=== PATIENT | female | born 1955 | race Two or more races ===

== ENCOUNTER 2024-06-03 19:43 | Emergency (ER) | payer OTHER ==
[~2024-06-03] VITALS: Ht 157.5 cm; Wt 59.4 kg
[2024-06-03] MEDS ORDERED: FF) Escitalopram Oxalate 5MG TABLET PO ONE (20:00)
[2024-06-03] MEDS ORDERED: TRAZODONE HCL 50 MG TABLET PO ONE (20:00)
[2024-06-03] MEDS ORDERED: LEXAPRO5 MG PO ×2 (20:06→21:45)
[2024-06-03] MEDS ORDERED: KETOROLAC TROMETHAMINE 60 MG VIAL IM ONE (20:15)
[2024-06-03 20:51] LABS: HEMATOCRIT 37.4 % (36.0-45.00); HEMOGLOBIN 12.8 g/dL (12.0-15.00); MEAN CELL VOLUME 87.2 fL (80.00-100.00); MEAN CORPUSCULAR HEMOGLOBIN 29.9 pg (27.00-32.0); MEAN CORPUSCULAR HGB CONC 34.3 g/dl (32.0-36.0); PLATELET COUNT 330 K/uL (150-450); RED BLOOD COUNT 4.28 M/uL (4.00-6.00); RED CELL DISTRIBUTION WIDTH 14.1 % (11.5-14.5)
[2024-06-03] MEDS ORDERED: hydrOXYzine PAMOATE 50 MG CAPSULE PO ONE (21:00)
[2024-06-03 21:09] LABS: D DIMER 0.93 MG/L; PARTIAL THROMBOPLASTIN TIME 25.3 SECONDS (22.0-34.0); PROTHROMBIN TIME 10.9 SECONDS (9.0-11.5)
[2024-06-03 21:13] LABS: ALBUMIN 3.9 gm/dL (3.4-5.0); BILIRUBIN TOTAL 0.51 mg/dL (0.3-1.2); CALCIUM 9.2 mg/dL (8.5-10.1); CREATININE SERUM 0.86 mg/dL (0.55-1.02); GFR 65.42; GLOBULINA 3.5 G/DL (2.4-3.5); POTASSIUM 3.81 mEq/L (3.5-5.1); TOTAL PROTEIN 7.4 gm/dL (6.4-8.2)
[2024-06-03] MEDS ORDERED: TRAZODONE HCL50 MG PO (21:45)
[2024-06-03] MEDS ORDERED: ALBUTEROL2.5 MG/3 M IH (21:46)
== END 2024-06-03 21:50 | disposition home or self-care (01) ==
LOC: ER 19:45
PROVIDERS: General Practice
DX: M79.602 Pain in left arm (principal); Z88.2 Allergy status to sulfonamides

== ENCOUNTER 2024-06-06 11:08 | Emergency (ER) | payer OTHER ==
[~2024-06-06] VITALS: Ht 157.5 cm; Wt 59.0 kg
[~2024-06-06 11:08] MED LIST: ALBUTEROL2.5 MG/3 M IH; LEXAPRO5 MG PO; TRAZODONE HCL50 MG PO
[2024-06-06] MEDS ORDERED: RAYOS1 MG PO (12:12)
[2024-06-06] MEDS ORDERED: LEVALBUTEROL HCL 1.25 MG/3 ML SOLUTION IH SCH (12:15)
== END 2024-06-06 14:42 | disposition home or self-care (01) ==
LOC: ER 11:08
DX: M79.602 Pain in left arm (principal); Z88.2 Allergy status to sulfonamides

== ENCOUNTER 2024-06-17 11:32 | Emergency (ER) | payer OTHER ==
[~2024-06-17] VITALS: Ht 157.5 cm; Wt 59.0 kg
[~2024-06-17 11:32] MED LIST changes: +RAYOS1 MG PO
[2024-06-17] MEDS ORDERED: SUMATRIPTAN SUCCINATE 6 MG/0.5 ML VIAL SUBCUTANEO STA (12:50)
[2024-06-17] MEDS ORDERED: METOCLOPRAMIDE HCL 5 MG/ML VIAL IV STA (12:51)
[2024-06-17 13:55] LABS: HEMATOCRIT 38.6 % (36.0-45.00); HEMOGLOBIN 12.7 g/dL (12.0-15.00); MEAN CELL VOLUME 88.2 fL (80.00-100.00); MEAN CORPUSCULAR HGB CONC 32.9 g/dl (32.0-36.0); PLATELET COUNT 310 K/uL (150-450); RED BLOOD COUNT 4.37 M/uL (4.00-6.00); RED CELL DISTRIBUTION WIDTH 14.9 % (11.5-14.5)
[2024-06-17 14:25] LABS: CALCIUM 10.1 mg/dL (8.5-10.1); CREATININE SERUM 0.98 mg/dL (0.55-1.02); GFR 56.27; POTASSIUM 4.53 mEq/L (3.5-5.1)
== END 2024-06-17 17:05 | disposition home or self-care (01) ==
LOC: ER 11:33
PROVIDERS: General Practice
DX: G43.109 Migraine with aura, not intractable, without status migrainosus (principal); Z88.2 Allergy status to sulfonamides; Z88.8 Allergy status to other drugs, medicaments and biological substances; Z86.73 Personal history of transient ischemic attack (TIA), and cerebral infarction without residual deficits